=== PATIENT | female | born 1970 | race Caucasian/White ===

== ENCOUNTER 2016-06-15 15:52 | Emergency (ER) | payer OTHER, MEDICAID ==
[2016-06-15 16:02] VITALS: TEMP 98.4; BMI 23.8
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
[2016-06-16] VITALS: BP 140/76; PULSE 68; RESP 16; O2SAT 99
--- NOTE | 2016-06-16 08:52 | RAD ---
PROCEDURE: Right Femur Radiographs. HISTORY: Right leg pain COMPARISON: None. TECHNIQUE: AP and Lateral Radiographs of the right femur. FINDINGS: FEMUR: Bone alignment and mineralization are normal. There is no acute fracture or bone destruction. SOFT TISSUES: Normal. OTHER FINDINGS: None. IMPRESSION: Normal examination.
--- NOTE | 2016-06-16 08:53 | RAD ---
PROCEDURE: Pelvis and right Hip Radiographs. HISTORY: Right hip pain COMPARISON: None. FINDINGS: BONES: The pelvic ring is intact. There is no acute fracture or bone destruction. JOINTS: Normal. SOFT TISSUES: Normal. OTHER FINDINGS: None. IMPRESSION: Normal examination.
--- NOTE | 2016-06-16 08:56 | RAD ---
PROCEDURE: Radiographs of the Lumbar Spine. HISTORY: Back pain COMPARISON: No prior. FINDINGS: BONES: There is normal alignment of the lumbar vertebral bodies. Lumbar lordosis is maintained. Vertebral bodies are normal in height. There is no acute fracture or bone destruction. DISC SPACES: There is mild multilevel degenerative disc disease with anterior spurring, reduced disc heights and multilevel facet arthropathy, worse at L5-S1. OTHER FINDINGS: There are no pathologic soft tissue calcifications. Both sacroiliac joints are normal. IMPRESSION: No acute fracture, spondylolysis or spondylolisthesis. Mild multilevel degenerative disc disease, worse at L5-S1.
== END 2016-06-15 18:43 | disposition home or self-care (01) ==
LOC: ED 15:52
DX: M54.9 Dorsalgia, unspecified (principal); M25.551 Pain in right hip; M79.604 Pain in right leg; E11.9 Type 2 diabetes mellitus without complications
CPT/HCPCS: 72110; 73502; 73552; 82948; 96372; 99285; J1885

== ENCOUNTER 2018-06-25 11:35 | Outpatient (CLI) | payer MEDICAID | END 2018-06-25 11:36 | disposition home or self-care (01) | LOC: RAD 11:35 ==

== ENCOUNTER 2018-07-11 13:29 | Outpatient (CLI) | payer MEDICAID | END 2018-07-11 13:30 | disposition home or self-care (01) | LOC: RAD 13:29 ==